=== PATIENT | female | born 2000 | race Caucasian/White ===

== ENCOUNTER 2024-01-06 11:13 | Emergency (ER) | payer OTHER, SELFPAY ==
[2024-01-06 11:24] VITALS: BP 113/71; PULSE 97; RESP 16; TEMP 36.5; O2SAT 99
--- NOTE | 2024-01-06 11:41 | ED.EYEPROB ---
HPI - Eye Problem General Chief complaint: Eye Problems Stated complaint: Eye Problem/Right Breast Pain History of Present Illness HPI Narrative: patient is a 23-year-old female, without significant past medical history, presents [facility] with right eye crusting, itching and drainage. She denies associated fevers, she has no vision loss, she does not wear contact lenses and she denies foreign body risk. She is currently breast feeding. She has no other acute complaints Related Data Home Medications Medication Instructions Recorded Confirmed Allergy Med. 01/06/24 Bc 01/06/24 dicloxacillin 01/06/24 Allergies Allergy/AdvReac Type Severity Reaction Status Date / Time No Known Allergies Allergy Verified 01/06/24 11:33 Review of Systems Eyes: Comments: refer to HPI Exam Const: General: healthy appearing and no acute distress Nutritional Appearance: well nourished Orientation/consciousness: patient oriented x3 Limitations: no limitations HENMT: Head: normal to inspection Ears: external ears normal and TM's normal bilaterally Face/Nose/Sinus: Normal external nose present Face and sinus: normal facial exam Mouth: Yes Normal oral and palatal mucosa present and Yes lip normal Teeth and gingiva: dentition normal Throat: posterior oropharynx normal and uvula midline Eyes: Conjunctivae: conjunctival abnormality (pt has crusting to the lash line, conjunctival injection, no chemosis ) right Pupils: Equal, round and reactive pupils present EOM: EOMs intact bilaterally Neck: Neck: normal visual inspection and no lymphadenopathy Resp: Effort & Inspection: normal respiratory effort Auscultation: clear to auscultation bilaterally Cardio: Rate: regular rate Rhythm: regular rhythm Skin: General skin exam: normal color Rashes: no rashes Wounds: no wounds Neuro: General: patient oriented x3, moves all extremities, no meningeal signs, no focal motor deficits and CN's II-XI intact bilaterally Cranial nerves: Yes Nystagmus not present Speech: normal speech Gait exam (Neuro): Normal gait present Extrem: General: normal to inspection, no clubbing, cyanosis or edema and no pedal edema Course Course Emergency Course: plan to treat with antibiotic eyedrops, follow-up with PCP if symptoms are not resolving in 2-3 days. Patient is agreeable plan. Lots of good handwashing stressed Level of Care: [facility] Visit ([id number]) MDM - Eye Problem MDM Narrative Medical decision making narrative: maxitrol eyedrops Differential Diagnosis Differential diagnosis: Likely other ( viral /allergic/ bacterial conjunctivitis) Discharge Plan Discharge Clinical Impression: Bacterial conjunctivitis Patient Disposition: Home, Self-Care Condition: Stable Instructions: Antibiotic Form, Conjunctivitis (ED) Additional Instructions: wash hands well before and after instilling eyedrops as directed. Follow-up with your primary doctor or your eye doctor if your symptoms are not resolving in 2-3 days Prescriptions: New neomycin-polymyxin B-dexameth [Maxitrol] 3.5mg/mL-10,000 unit/mL-0.1 % drops,suspension 1 drp RIGHT EYE Q4H 5 Days Qty: 5 0RF No Action dicloxacillin Bc Allergy Med. Follow-up/Referrals: PHYSICIAN,CHAPLAIN RESIDENT [Primary Care Provider] - Time of Disposition: 11:51
== END 2024-01-06 11:54 | disposition home or self-care (01) ==
PROVIDERS: Emergency Provider Nurse Practitioner Family
DX: H10.9 Unspecified conjunctivitis (principal)
CPT/HCPCS: 99203; G0463